=== PATIENT | male | born 1950 | race Caucasian/White ===

== ENCOUNTER 2023-08-22 01:24 | Outpatient (CLI) | payer MEDICARE, OTHER, SELFPAY ==
[2023-08-22 10:28] LABS: HCT 43.8 % (40.0-50.0); HGB 14.8 g/dL (13.5-17.5); MCHC 33.8 % (32.0-36.0); MCV 89 fL (80-95); Platelet Count 126 10^3/uL (130-400); RBC 4.94 10^6/uL (4.36-5.78); RDW 13.9 % (11.8-14.1); RDW-SD 45.1 fL; WBC 10.79 10^3/uL (4.4-10.8)
[2023-08-22 10:45] LABS: Absolute Eosinophil Count 0.11 10^3/uL (0.0-0.7); Absolute Lymphocyte Count 6.26 10^3/uL (1.2-3.4); Absolute Monocyte Count 0.32 10^3/uL (0.1-0.8); Atypical Lymphocytes % 16; Diff Comment Manual Differential; RBC Morphology Normal
[2023-08-22 11:01] LABS: ALT 31 U/L (16-63); AST 17 U/L (15-37); Albumin 3.8 g/dL (3.4-5.0); Alkaline Phosphatase 77 U/L (46-116); Anion Gap 8.4 mmol/L (3-11); BUN 21 mg/dL (7-18); CO2 26.6 mmol/L (21.0-32.0); Calcium 9.3 mg/dL (8.5-10.1); Chloride 105 mmol/L (98-107); Estimated GFR 79.47 (mL/min/1.73m2); Glucose 140 mg/dL (74-106); LDH 161 U/L (85-227); Potassium 4.3 mmol/L (3.5-5.1); Sodium 140 mmol/L (136-145); Total Protein 7.1 g/dL (6.4-8.2)
== END 2023-08-22 01:25 | disposition home or self-care (01) ==
LOC: LBO 01:26
PROVIDERS: Visit Provider Internal Medicine Hematology & Oncology
DX: C91.10 Chronic lymphocytic leukemia of B-cell type not having achieved remission (principal)
CPT/HCPCS: 36415; 80053; 83615; 85025

== ENCOUNTER 2024-02-21 11:38 | Outpatient (CLI) | payer MEDICARE, OTHER, SELFPAY ==
[2024-02-21 11:44] LABS: HCT 45.4 % (40.0-50.0); HGB 15.1 g/dL (13.5-17.5); MCH 31.5 pg (27.0-33.0); MCHC 33.3 % (32.0-36.0); MCV 95 fL (80-95); MPV 10.5 fL (8.0-11.0); Platelet Count 118 10^3/uL (130-400); RDW 13.6 % (11.8-14.1); RDW-SD 47.7 fL; WBC 13.45 10^3/uL (4.4-10.8)
[2024-02-21 11:53] LABS: Absolute Basophil Count 0.13 10^3/uL (0.0-0.2); Absolute Eosinophil Count 0.13 10^3/uL (0.0-0.7); Absolute Lymphocyte Count 7.94 10^3/uL (1.2-3.4); Absolute Monocyte Count 0.54 10^3/uL (0.1-0.8); Absolute Neutrophil Count 4.71 10^3/uL (1.2-6.7); Atypical Lymphocytes % 2 %; Diff Comment Manual Differential; RBC Morphology Normal
[2024-02-21 12:08] LABS: ALT 38 U/L (16-63); AST 22 U/L (15-37); Alkaline Phosphatase 86 U/L (46-116); Anion Gap 7.5 mmol/L (3-11); BUN 19 mg/dL (7-18); Bilirubin, Total 0.9 mg/dL (0.2-1.0); CO2 29.5 mmol/L (21.0-32.0); CREATININE 0.9 mg/dL (0.70-1.30); Calcium 9.4 mg/dL (8.5-10.1); Chloride 107 mmol/L (98-107); Estimated GFR 89.62 (mL/min/1.73m2); Glucose 128 mg/dL (74-106); Potassium 4.9 mmol/L (3.5-5.1); Sodium 144 mmol/L (136-145); Total Protein 6.9 g/dL (6.4-8.2)
[2024-02-21 12:15] LABS: Calculated LDL 83 mg/dL (<100); Cholesterol 170 mg/dL (<200); HDL Cholesterol 55 mg/dL (40-60); Triglyceride 164 mg/dL (<150)
[2024-02-21 12:19] LABS: LDH 192 U/L (85-227)
[2024-02-27 09:07] LABS: Chromosome Analysis(UVM) (See below)
== END 2024-02-21 11:39 | disposition home or self-care (01) ==
LOC: LBO 11:38
PROVIDERS: Visit Provider Internal Medicine Hematology & Oncology
DX: D72.0 Genetic anomalies of leukocytes (principal); I25.10 Atherosclerotic heart disease of native coronary artery without angina pectoris
CPT/HCPCS: 36415; 80053; 80061; 83615; 85025; 88230; 88262

== ENCOUNTER 2024-08-15 10:27 | Outpatient (CLI) | payer MEDICARE, OTHER, SELFPAY ==
[2024-08-15 10:14] LABS: HCT 45.7 % (40.0-50.0); HGB 15.4 g/dL (13.5-17.5); MCH 31.6 pg (27.0-33.0); MCHC 33.7 % (32.0-36.0); MCV 94 fL (80-95); Platelet Count 119 10^3/uL (130-400); RBC 4.88 10^6/uL (4.36-5.78); RDW 13.4 % (11.8-14.1); WBC 10.68 10^3/uL (4.4-10.8)
[2024-08-15 10:32] LABS: ALT 49 U/L (16-63); AST 31 U/L (15-37); Alkaline Phosphatase 82 U/L (46-116); Anion Gap 7.6 mmol/L (3-11); BUN 22 mg/dL (7-18); Bilirubin, Total 0.72 mg/dL (0.2-1.0); CO2 27.4 mmol/L (21.0-32.0); Calcium 9.5 mg/dL (8.5-10.1); Chloride 106 mmol/L (98-107); Estimated GFR 78.98 (mL/min/1.73m2); Glucose 124 mg/dL (74-106); LDH 195 U/L (85-227); Potassium 5.1 mmol/L (3.5-5.1); Sodium 141 mmol/L (136-145); Total Protein 7.1 g/dL (6.4-8.2)
[2024-08-15 10:33] LABS: Absolute Basophil Count 0.11 10^3/uL (0.0-0.2); Absolute Eosinophil Count 0.21 10^3/uL (0.0-0.7); Absolute Lymphocyte Count 6.19 10^3/uL (1.2-3.4); Absolute Monocyte Count 0.43 10^3/uL (0.1-0.8); Absolute Neutrophil Count 3.74 10^3/uL (1.2-6.7); Atypical Lymphocytes % 3 %; Diff Comment Manual Differential; RBC Morphology Normal
== END 2024-08-15 10:28 | disposition home or self-care (01) ==
LOC: LBO 10:28
PROVIDERS: Visit Provider Internal Medicine Hematology & Oncology
DX: C91.10 Chronic lymphocytic leukemia of B-cell type not having achieved remission (principal)
CPT/HCPCS: 36415; 80053; 83615; 85025

== ENCOUNTER 2025-02-12 10:22 | Outpatient (CLI) | payer MEDICARE, OTHER, SELFPAY ==
[2025-02-12 09:47] LABS: Abs Immature Grans 0.02 10^3/uL (0.0-0.06); HCT 45.2 % (40.0-50.0); HGB 15.5 g/dL (13.5-17.5); MCH 31.8 pg (27.0-33.0); MCHC 34.3 % (32.0-36.0); MCV 93 fL (80-95); MPV 10.3 fL (8.0-11.0); Platelet Count 119 10^3/uL (130-400); RBC 4.88 10^6/uL (4.36-5.78); RDW 13.6 % (11.8-14.1); RDW-SD 46.5 fL; WBC 11.57 10^3/uL (4.4-10.8)
[2025-02-12 10:10] LABS: ALT 41 U/L (16-63); AST 26 U/L (15-37); Alkaline Phosphatase 82 U/L (46-116); Anion Gap 9.8 mmol/L (3-11); BUN 20 mg/dL (7-18); Bilirubin, Total 0.7 mg/dL (0.2-1.0); CO2 28.2 mmol/L (21.0-32.0); Calcium 9.7 mg/dL (8.5-10.1); Chloride 107 mmol/L (98-107); Estimated GFR 78.49 (mL/min/1.73m2); Glucose 120 mg/dL (74-106); LDH 178 U/L (85-227); Potassium 4.4 mmol/L (3.5-5.1); Sodium 145 mmol/L (136-145); Total Protein 6.9 g/dL (6.4-8.2)
[2025-02-12 10:34] LABS: Absolute Neutrophil Count 2.55 10^3/uL (1.2-6.7); Bands % 0 %
[2025-02-12 10:35] LABS: Absolute Eosinophil Count 0.12 10^3/uL (0.0-0.7); Absolute Lymphocyte Count 8.56 10^3/uL (1.2-3.4); Absolute Monocyte Count 0.35 10^3/uL (0.1-0.8); Atypical Lymphocytes % 7 %; Diff Comment Manual Differential; RBC Morphology Normal
[2025-02-13 09:34] LABS: IgG 704 mg/dL (610-1616)
== END 2025-02-12 10:23 | disposition home or self-care (01) ==
PROVIDERS: Visit Provider Nurse Practitioner Adult Health
DX: C91.10 Chronic lymphocytic leukemia of B-cell type not having achieved remission (principal)
CPT/HCPCS: 36415; 80053; 82784; 83615; 85025